=== PATIENT | male | born 1980 | race Asian ===

== ENCOUNTER → 2016-12-18 11:36 | Outpatient (CLI) | payer OTHER | END | disposition home or self-care (01) | LOC: D.RAD 11:36 | DX: Z11.1 Encounter for screening for respiratory tuberculosis (principal) ==

== ENCOUNTER → 2017-06-03 10:02 | Outpatient (CLI) | payer OTHER | END | disposition home or self-care (01) | LOC: D.RAD 10:02 | DX: A15.9 Respiratory tuberculosis unspecified (principal) ==

== ENCOUNTER 2017-12-24 08:23 | Outpatient (CLI) | payer BC ==
[~2017-12-24] VITALS: Ht 157.5 cm; Wt 62.7 kg
--- NOTE | ~2017-12-24 | OP ---
PATIENT NAME: HIMA ASLAS MEDICAL RECORD: [id number] LOCATION:[facility] ADMISSION DATE: SURGEON: PASCALE HESS MD DATE OF OPERATION: 12/24/2017 PROCEDURE: Fiberoptic bronchoscopy. INDICATION: Mr. Salas is a 37-year-old gentleman immigrant from [place]. He has a history of TB that was treated for 6 months. The patient was referred by the [facility] to evaluate him for TB. A fiberoptic bronchoscopy was done to obtain specimen for culture and sensitivity, AFB, and fungus. MEDICATIONS: Versed 2 mg IV, morphine sulfate 4 mg IM, Phenergan 12.5 mg IV. MONITORING: EKG, pulse, blood pressure, SpO2 was monitored throughout the procedure. PROCEDURE: After obtaining conscious sedation, the fiberoptic bronchoscope was easily passed through the mouth. The vocal cords were normal, moving equally on phonation. The main trachea was normal. The dario was sharp. The subsegment to the right upper lobe, right lower lobe, right middle lobe within normal range. No endobronchial lesion was seen. No mucus plugging was seen. The left main bronchus was normal. There was a sessile polyp at the takeoff of the left upper lobe. No other endobronchial lesion was seen. There was no mucus plugging and thick mucus was seen. Specimen washing was obtained from both left upper lobe and right upper lobe and sent for routine culture sensitivity, AFB and fungus and cytology. Overall, the patient tolerated the procedure very well. 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
[2017-12-24 08:51] LABS: BASOPHILS 0.2 % (0-2); EOSINOPHILS 1.7 % (0-7); HEMATOCRIT 42.7 % (42.0-54.0); HEMOGLOBIN 15.3 g/dL (13.5-17.5); IMMATURE GRANULOCYTES 0.2 % (0-5); LYMPHOCYTES 38.6 % (15-50); MCHC 35.8 g/dL (31.0-37.0); MEAN PLATELET VOLUME 9.1 fL (7.4-10.4); MONOCYTES 4.4 % (2-11); NEUTROPHILS 54.9 % (40-80); PLATELET COUNT 250 10x3/uL (130-400); RBC 4.64 10x6/uL (4.20-6.10); RDW 12.5 % (11.5-14.5); WBC 6.6 10x3/uL (4.8-10.8)
[2017-12-24 09:03] LABS: INR 1.03 (0.85-1.17); PROTIME 13.1 SECONDS (11.6-15.0)
[2017-12-24 09:04] LABS: APTT 35.4 SECONDS (22.8-39.4)
[2017-12-24 09:37] VITALS: BP 142/88; Ht 157.5 cm; Wt 62.7 kg
[2017-12-26 18:07] LABS: ACID FAST SMEAR Negative (()); AFB SPECIMEN PROCESSING Concentration (())
[2017-12-28 08:09] LABS: FUNGUS STAIN Final report (())
[2018-01-22 10:20] LABS: FUNGUS MYCOLOGY CULTURE Final report (())
== END 2017-12-24 14:05 | disposition home or self-care (01) ==
LOC: D.OPS 08:23
PROVIDERS: Internal Medicine Pulmonary Disease
DX: Z86.11 Personal history of tuberculosis (principal); R76.11 Nonspecific reaction to tuberculin skin test without active tuberculosis; D71 Functional disorders of polymorphonuclear neutrophils; K21.9 Gastro-esophageal reflux disease without esophagitis; Z01.812 Encounter for preprocedural laboratory examination